=== PATIENT | female | born 1965 | race Caucasian/White ===

== ENCOUNTER 2021-06-29 13:49 | Outpatient (CLI) | payer BC, SELFPAY ==
--- NOTE | ~2021-06-29 | CT_ITS ---
EXAMINATION:CT lung screening DATE: 06/29/2021 14:21 INDICATION: Personal history of tobacco dependence. Current smoker with 40 pack year history. TECHNIQUE: Computed tomography (CT) of the chest was performed without intravenous contrast. Automate d exposure control and iterative reconstruction technique were employed. The dose-length product (DLP ) was 228.32 mGy-cm. COMPARISON: Chest CT 12/31/2018 FINDINGS: There is moderate emphysema. A calcified left lung nodule is consistent with old granulomat ous disease. No pleural effusion. The heart size is normal. There are coronary artery calcifications. There is a moderate-sized sliding hiatal hernia. There are changes of cholecystectomy. There is a li azalea in left chest wall. There is moderate thoracic spondylosis. There is mild chronic anterior wedgi ng of multiple vertebral bodies. IMPRESSION: 1. Lung-RADS category 1: Negative. Continue annual screening with noncontrast low-dose chest CT in 12 months. Reviewed, dictated and finalized at location A. IMPRESSION: 1. Lung-RADS category 1: Negative. Continue annual screening with noncontrast l ow-dose chest CT in 12 months.
--- NOTE | ~2021-06-29 | MM_ITS ---
EXAMINATION: MM screening gab BI w humza HISTORY: Screening mammogram TECHNIQUE: Craniocaudal and mediolateral oblique 3-D tomosynthesis images were obtained and synthetic 2-D images were generated. CAD analysis was submitted and interpreted. COMPARISON: No prior mammogram is available for comparison at this institution. BREAST PARENCHYMAL COMPOSITION: The breasts are almost entirely fatty. FINDINGS: RIGHT BREAST: A mass is present in the middle third of inner breast 8 cm from the nipple. LEFT BREAST: There is no evidence of suspicious mass, calcification, or architectural distortion to s uggest malignancy. IMPRESSION: 1. Right breast mass. 2. Additional mammographic views and possible breast ultrasound are recommended. BI-RADS Category 0: Incomplete: Needs additional imaging evaluation. Reviewed, dictated and finalized at location A. IMPRESSION: 1. Right breast mass. 2. Additional mammographic views and possible breast ultrasound are recommended . BI-RADS Category 0: Incomplete: Needs additional imaging evaluation.
--- NOTE | ~2021-06-29 | XR_ITS ---
XR lumbar spine 2-3V DATE: 06/29/2021 14:38 INDICATION: Low back pain TECHNIQUE: AP, lateral, coned lateral lumbosacral views COMPARISON: None FINDINGS: Diffuse osteopenia. The included lower thoracic and lumbar pedicles are intact. No fracture or bone destruction or spondy lolisthesis. Moderate degenerative disc disease throughout the lumbar and lumbosacral spine. The sacroiliac joints are unremarkable. Status post cholecystectomy. IMPRESSION: Multilevel moderate degenerative disc disease Reviewed, dictated and finalized at location A.
== END 2021-06-29 13:50 | disposition home or self-care (01) ==
PROVIDERS: PCP Family Medicine; Visit Provider Family Medicine
DX: Z12.2 Encounter for screening for malignant neoplasm of respiratory organs (principal); Z87.891 Personal history of nicotine dependence; Z12.31 Encounter for screening mammogram for malignant neoplasm of breast; M54.5 Low back pain
CPT/HCPCS: 71271; 72100; 77063; 77067

== ENCOUNTER 2021-07-16 09:16 | Outpatient (CLI) | payer BC, SELFPAY ==
--- NOTE | ~2021-07-16 | MMUS_ITS ---
EXAMINATION: MM diagnostic gab RT w humza, US breast RT limited HISTORY: Follow-up right breast asymmetry TECHNIQUE: Additional 3-D tomosynthesis images of the right breast were performed and synthetic 2-D i mages were generated. CAD analysis was submitted and interpreted. High resolution Limited right breas t ultrasound was performed. COMPARISON: 06/29/2021 BREAST PARENCHYMAL COMPOSITION: BREAST PARENCHYMAL COMPOSITION: There are scattered areas of fibroglandular density.. FINDINGS: MAMMOGRAPHIC FINDINGS: There is focal asymmetry with possible architectural distortion in the lower inner quadrant of the ri ght breast, middle third. There are no suspicious calcifications. ULTRASOUND: Limited right breast ultrasound: At 2:00, 6 cm from the nipple, there is an irregular hypoechoic stru cture measuring 7 mm with posterior attenuation. No internal vascularity. This likely corresponds to the mammographic abnormality. IMPRESSION: 1. Irregular shaped hypoechoic 7 mm right breast mass at 2:00, 6 cm from the nipple by ultrasound. 2. Ultrasound-guided right breast biopsy recommended. BI-RADS category 4, suspicious findings. Reviewed, dictated and finalized at location A. IMPRESSION: 1. Irregular shaped hypoechoic 7 mm right breast mass at 2:00, 6 cm from the ni pple by ultrasound. 2. Ultrasound-guided right breast biopsy recommended. BI-RADS category 4, suspicious findings.
== END 2021-07-16 09:17 | disposition home or self-care (01) ==
PROVIDERS: PCP Family Medicine; Visit Provider Family Medicine
DX: R92.8 Other abnormal and inconclusive findings on diagnostic imaging of breast (principal)
CPT/HCPCS: 76642; 77061; 77065; G0279

== ENCOUNTER 2021-08-03 10:27 | Outpatient (CLI) | payer BC, SELFPAY ==
--- NOTE | ~2021-08-03 | US_ITS ---
Consultation US 08/03/2021 11:09 Indication: Right breast abnormality seen on prior examination. Biopsy requested. Procedure: High-resolution ultrasound of the right breast at 2:00, 6 cm from the nipple in the area o f previously described abnormality. Comparison: Ultrasound dated 07/16/2021 Findings: There is normal heterogeneous echotexture without focal mass. The area of abnormality appea rs to represent normal fibroglandular tissue during real-time examination. I was present during the e xamination. Findings discussed with the patient. Biopsy canceled. Short-term follow-up diagnostic rig ht mammogram and ultrasound recommended. Impression: 1: Probable benign normal heterogeneous fibroglandular tissue in the area of previously described abn ormality. Short-term follow-up is recommended. BI-RADS CATEGORY 3-PROBABLY BENIGN FINDING RECOMMENDATION: Six-month follow-up diagnostic right mammogram and ultrasound recommended. Reviewed, dictated and finalized at location A. Impression: 1: Probable benign normal heterogeneous fibroglandular tissue in the area of pr eviously described abnormality. Short-term follow-up is recommended. BI-RADS CATEGORY 3-PROBABLY BENIGN FINDING RECOMMENDATION: Six-month follow-up diagnostic right mammogram and ultrasound r ecommended.
== END 2021-08-03 10:28 | disposition home or self-care (01) ==
LOC: ANHIMG 10:31
PROVIDERS: PCP Family Medicine; Visit Provider Family Medicine
DX: N63.10 Unspecified lump in the right breast, unspecified quadrant (principal); R92.8 Other abnormal and inconclusive findings on diagnostic imaging of breast
CPT/HCPCS: 99199

== ENCOUNTER 2022-07-04 12:37 | Outpatient (CLI) | payer BC, SELFPAY ==
--- NOTE | ~2022-07-04 | MMUS_ITS ---
EXAMINATION: MM diagnostic gab BI w humza, US breast RT limited HISTORY: Six-month follow-up for probably benign focal asymmetry of the right breast TECHNIQUE: Craniocaudal, mediolateral, and mediolateral oblique 3-D tomosynthesis images of the right breast were performed and synthetic 2-D images were generated. CAD analysis was submitted and interp reted. High resolution limited right breast ultrasound was performed. COMPARISON: 07/16/2021, 06/29/2021 BREAST PARENCHYMAL COMPOSITION: The breasts are almost entirely fatty. FINDINGS: MAMMOGRAPHIC FINDINGS: There is a developing asymmetry in the middle third of the inner breast at the 3:00 location 8 cm fro m the nipple with associated architectural distortion. ULTRASOUND: There is no evidence of focal abnormal solid or cystic mass in the vicinity of the mammographic findi ng in question. IMPRESSION: 1. Developing asymmetry of the right breast without ultrasound correlate identified. 2. Stereotactic right breast biopsy is recommended. BI-RADS category 4, suspicious findings. Reviewed, dictated and finalized at location A. IMPRESSION: 1. Developing asymmetry of the right breast without ultrasound correlate identi fied. 2. Stereotactic right breast biopsy is recommended. BI-RADS category 4, suspicious findings.
== END 2022-07-04 12:38 | disposition home or self-care (01) ==
PROVIDERS: PCP Family Medicine; Visit Provider Family Medicine
DX: R92.8 Other abnormal and inconclusive findings on diagnostic imaging of breast (principal)
CPT/HCPCS: 76642; 77061; 77062; 77065; 77066; G0279

== ENCOUNTER 2022-07-18 13:23 | Outpatient (CLI) | payer BC, SELFPAY ==
--- NOTE | ~2022-07-18 | MM_ITS ---
EXAMINATION: MM stereotactic bx RT, MM stereotactic specimen RT, MM post biopsy diagnostic RT, Specim en Radiograph, Tissue Marker Clip Placement, Unilateral Mammogram DATE: 07/18/2022 15:17 (accession [id number]), 07/18/2022 15:15 (accession [id number]), 07/18 15:13 (accession [id number]) INDICATION: Abnormal mammogram: 3:00 mammographic asymmetric density. TECHNIQUE AND FINDINGS: The risks and potential benefits of the procedure were discussed with the patient and written informe d consent was obtained. Timeout procedure was performed. The patient was placed in the prone position on the dedicated stereotactic table with the right breast in craniocaudal compression, and the area of interest was localized and targeted utilizing digital imaging with stereotaxis. After sterile preparation of the skin, 1% lidocaine was utilized for local anesthesia at the skin pun cture site and 1% lidocaine with epinephrine was utilized for deeper local anesthesia/is about the bi opsy site. A 9G [employer] vacuum assisted biopsy needle was advanced to the level of the calcification o f interest from a cephalad approach utilizing stereotactic guidance and a total of 16 tissue core bio psies were obtained. A specimen radiograph demonstrates that the calcifications of interest are included within the tissue cores. A tissue marker clip was then placed at the biopsy site. A digital mammographic exposure co nfirmed the successful deployment of the biopsy marker. The needle was removed and hemostasis was ac hieved. A sterile bandage was applied. The patient tolerated the procedure well and there is no bassam dence of significant immediate complication. The patient was given verbal as well as written postpro cedural instructions prior to discharge from the department. Tissue cores were submitted to surgical pathology for histologic analysis. A 2-view RIGHT unilateral digital mammogram was obtained post procedure, demonstrating the tissue mar ker clip in expected position. IMPRESSION: 1. Successful stereotactic biopsy of right 3:00 asymmetric mammographic density, followed by tissue marker clip placement. Please refer to pathology report for histologic analysis. Reviewed, dictated and finalized at Location A. Reviewed, dictated and finalized at location A. IMPRESSION: 1. Successful stereotactic biopsy of right 3:00 asymmetric mammographic densi ty, followed by tissue marker clip placement. Please refer to pathology report for histologic analysis. IMPRESSION: 1. Successful stereotactic biopsy of right 3:00 asymmetric mammographic densi ty, followed by tissue marker clip placement. Please refer to pathology report for histologic analysis.
== END 2022-07-18 13:24 | disposition home or self-care (01) ==
PROVIDERS: PCP Family Medicine; Visit Provider Family Medicine
DX: R92.8 Other abnormal and inconclusive findings on diagnostic imaging of breast (principal); N63.12 Unspecified lump in the right breast, upper inner quadrant
CPT/HCPCS: 19081; 77065; 88305; 88342; A4648

== ENCOUNTER 2022-12-12 10:23 | Outpatient (CLI) | payer BC, SELFPAY ==
[2022-12-12 10:35] LABS: Basophils Absolute Auto 0.1 K/mm3 (0.0-0.1); Eosinophils Absolute Auto 0.2 K/mm3 (0-0.3); Eosinophils Percent Auto 2.6 % (0-4.4); Hematocrit 44.6 % (37.0-47.0); Hemoglobin 15.2 g/dL (12.0-15.0); Immature Granulocyte Absolute 0.02 K/mm3 (0.00-0.031); Immature Granulocyte Percent A 0.3 % (0-0.5); Lymphocytes Absolute Auto 2.13 K/mm3 (0.9-3.2); Lymphocytes Percent Auto 27.3 % (18.3-44.2); Mean Corpuscular HGB Conc 34.1 g/dl (32-36); Mean Corpuscular Hemoglobin 31.5 pg (26-34); Mean Corpuscular Volume 92.3 fl (80-100); Mean Platelet Volume 9.5 fl (7.4-10.4); Monocytes Absolute Auto 0.5 K/mm3 (0.1-0.6); Monocytes Percent Auto 6.1 % (2.6-8.5); Neutrophils Absolute Auto 4.9 K/mm3 (1.3-6.7); Neutrophils Percent Auto 62.7 % (45.5-73.1); Platelet Count Result 319 k/mm3 (150-375); Red Blood Count 4.83 M/mm3 (4.2-5.4); Red Cell Distribution Width 14.1 % (11.5-14.5); White Blood Count 7.8 K/mm3 (4.5-10.0)
[2022-12-12 10:40] LABS: Blood Urea Nitrogen 9 mg/dL (8-26); Carbon Dioxide 28 mmol/L (22-30); Chloride 102 mmol/L (98-109); Estimated Glomerular Filt Rate > 60; Glucose 127 mg/dL (70-105); Ionized Calcium (POC) 1.18 mmol/L (1.11-1.31); Sodium 139 mmol/L (138-146)
[2022-12-12 11:41] LABS: Alanine Aminotransferase 22 U/L (6-35); Alkaline Phosphatase 102 U/L (38-126); Anion Gap 8 mmol/L (8-16); Aspartate Amino Transferase 22 U/L (14-36); Bilirubin,Total 0.4 mg/dL (0.2-1.3); Blood Urea Nitrogen 10 mg/dL (7-17); Calcium 8.7 mg/dL (8.4-10.2); Carbon Dioxide 25 mmol/L (22-30); Chloride 106 mmol/L (98-107); Estimated Glomerular Filt Rate > 60; Glucose 128 mg/dL (65-110); Sodium 139 mmol/L (137-145)
[2022-12-18 04:35] LABS: CA 15-3 20 U/mL (<32)
== END 2022-12-12 10:24 | disposition home or self-care (01) ==
LOC: ANHLAB 10:24
PROVIDERS: PCP Family Medicine; Visit Provider Internal Medicine Hematology & Oncology
DX: C50.211 Malignant neoplasm of upper-inner quadrant of right female breast (principal); Z17.0 Estrogen receptor positive status [ER+]
CPT/HCPCS: 36415; 80047; 80053; 85025; 86300

== ENCOUNTER 2023-01-30 11:04 | Outpatient (CLI) | payer BC, SELFPAY ==
[2023-01-30 11:16] LABS: Basophils Absolute Auto 0.1 K/mm3 (0.0-0.1); Basophils Percent Auto 0.7 % (0.2-1.2); Eosinophils Absolute Auto 0.3 K/mm3 (0-0.3); Eosinophils Percent Auto 3.1 % (0-4.4); Hematocrit 43.8 % (37.0-47.0); Immature Granulocyte Absolute 0.02 K/mm3 (0.00-0.031); Immature Granulocyte Percent A 0.2 % (0-0.5); Lymphocytes Absolute Auto 2.95 K/mm3 (0.9-3.2); Lymphocytes Percent Auto 32.4 % (18.3-44.2); Mean Corpuscular HGB Conc 34.2 g/dl (32-36); Mean Corpuscular Hemoglobin 31.4 pg (26-34); Mean Corpuscular Volume 91.6 fl (80-100); Mean Platelet Volume 9.9 fl (7.4-10.4); Monocytes Absolute Auto 0.5 K/mm3 (0.1-0.6); Monocytes Percent Auto 5.9 % (2.6-8.5); Neutrophils Absolute Auto 5.3 K/mm3 (1.3-6.7); Neutrophils Percent Auto 57.7 % (45.5-73.1); Platelet Count Result 330 k/mm3 (150-375); Red Blood Count 4.78 M/mm3 (4.2-5.4); Red Cell Distribution Width 13.7 % (11.5-14.5); White Blood Count 9.1 K/mm3 (4.5-10.0)
[2023-01-30 12:40] LABS: Alanine Aminotransferase 24 U/L (6-35); Albumin Level 4.1 g/dL (3.5-5.1); Alkaline Phosphatase 92 U/L (38-126); Anion Gap 6 mmol/L (8-16); Aspartate Amino Transferase 21 U/L (14-36); Bilirubin,Total 0.4 mg/dL (0.2-1.3); Blood Urea Nitrogen 7 mg/dL (7-17); Carbon Dioxide 26 mmol/L (22-30); Chloride 105 mmol/L (98-107); Estimated Glomerular Filt Rate > 60; Glucose 129 mg/dL (65-110); Potassium 3.9 mmol/L (3.4-5.0); Sodium 137 mmol/L (137-145)
[2023-02-03 18:18] LABS: CA 15-3 20 U/mL (<32)
== END 2023-01-30 11:05 | disposition home or self-care (01) ==
LOC: ANHLAB 11:06
PROVIDERS: PCP Family Medicine; Visit Provider Internal Medicine Hematology & Oncology
DX: C50.211 Malignant neoplasm of upper-inner quadrant of right female breast (principal); Z17.0 Estrogen receptor positive status [ER+]
CPT/HCPCS: 36415; 80053; 85025; 86300

== ENCOUNTER 2023-06-12 10:44 | Outpatient (CLI) | payer BC, SELFPAY ==
[2023-06-12 11:05] LABS: Basophils Absolute Auto 0.1 K/mm3 (0.0-0.1); Basophils Percent Auto 0.7 % (0.2-1.2); Eosinophils Absolute Auto 0.3 K/mm3 (0-0.3); Eosinophils Percent Auto 2.9 % (0-4.4); Hematocrit 44.1 % (37.0-47.0); Hemoglobin 15.5 g/dL (12.0-15.0); Immature Granulocyte Absolute 0.02 K/mm3 (0.00-0.031); Immature Granulocyte Percent A 0.2 % (0-0.5); Lymphocytes Absolute Auto 2.53 K/mm3 (0.9-3.2); Lymphocytes Percent Auto 24.3 % (18.3-44.2); Mean Corpuscular HGB Conc 35.1 g/dl (32-36); Mean Corpuscular Hemoglobin 32.8 pg (26-34); Mean Corpuscular Volume 93.2 fl (80-100); Mean Platelet Volume 9.9 fl (7.4-10.4); Monocytes Absolute Auto 0.8 K/mm3 (0.1-0.6); Monocytes Percent Auto 7.6 % (2.6-8.5); Neutrophils Absolute Auto 6.7 K/mm3 (1.3-6.7); Neutrophils Percent Auto 64.3 % (45.5-73.1); Platelet Count Result 333 k/mm3 (150-375); Red Blood Count 4.73 M/mm3 (4.2-5.4); White Blood Count 10.4 K/mm3 (4.5-10.0)
[2023-06-12 12:50] LABS: Alanine Aminotransferase 24 U/L (6-35); Albumin Level 4.2 g/dL (3.5-5.1); Alkaline Phosphatase 78 U/L (38-126); Anion Gap 8 mmol/L (8-16); Aspartate Amino Transferase 28 U/L (14-36); Bilirubin,Total 0.4 mg/dL (0.2-1.3); Blood Urea Nitrogen 7 mg/dL (7-17); Calcium 8.9 mg/dL (8.4-10.2); Carbon Dioxide 26 mmol/L (22-30); Chloride 105 mmol/L (98-107); Estimated Glomerular Filt Rate > 60; Glucose 115 mg/dL (65-110); Potassium 3.7 mmol/L (3.4-5.0); Sodium 139 mmol/L (137-145)
[2023-06-18 04:47] LABS: CA 15-3 28 U/mL (<32)
== END 2023-06-12 10:45 | disposition home or self-care (01) ==
LOC: ANHLAB 10:47
PROVIDERS: PCP Family Medicine; Visit Provider Internal Medicine Hematology & Oncology
DX: C50.211 Malignant neoplasm of upper-inner quadrant of right female breast (principal); Z17.0 Estrogen receptor positive status [ER+]
CPT/HCPCS: 36415; 80053; 85025; 86300

== ENCOUNTER 2023-06-16 16:20 | Outpatient (CLI) | payer BC, SELFPAY ==
--- NOTE | ~2023-06-16 | XR_ITS ---
EXAMINATION: XR chest 2V Exam Date/Time: 06/16/2023 16:30 CDT HISTORY: Acute Cough/sob Comparison: 04/29/2018. RESULT: Lines, tubes, and devices: Cholecystectomy clips. Right axillary clips. Right breast biopsy clips. Lungs and pleura: Clear. Cardiomediastinal silhouette: Stable. Other: No acute osseous or upper abdominal finding. IMPRESSION: No acute cardiopulmonary process. Reviewed, dictated and finalized at location K.
== END 2023-06-16 16:21 | disposition home or self-care (01) ==
LOC: CHSIMG 16:21
PROVIDERS: PCP Family Medicine; Visit Provider Family Medicine
DX: R05.1 Acute cough (principal)
CPT/HCPCS: 71046

== ENCOUNTER 2023-07-31 10:38 | Outpatient (CLI) | payer BC, SELFPAY ==
[2023-07-31 10:53] LABS: Basophils Absolute Auto 0.1 K/mm3 (0.0-0.1); Basophils Percent Auto 0.6 % (0.2-1.2); Eosinophils Absolute Auto 0.4 K/mm3 (0-0.3); Eosinophils Percent Auto 3.4 % (0-4.4); Hematocrit 41.9 % (37.0-47.0); Hemoglobin 14.1 g/dL (12.0-15.0); Immature Granulocyte Absolute 0.02 K/mm3 (0.00-0.031); Immature Granulocyte Percent A 0.2 % (0-0.5); Lymphocytes Absolute Auto 3.17 K/mm3 (0.9-3.2); Mean Corpuscular HGB Conc 33.7 g/dl (32-36); Mean Corpuscular Hemoglobin 31.8 pg (26-34); Mean Corpuscular Volume 94.6 fl (80-100); Mean Platelet Volume 9.8 fl (7.4-10.4); Monocytes Absolute Auto 0.6 K/mm3 (0.1-0.6); Monocytes Percent Auto 5.5 % (2.6-8.5); Neutrophils Absolute Auto 6.1 K/mm3 (1.3-6.7); Neutrophils Percent Auto 59.3 % (45.5-73.1); Platelet Count Result 323 k/mm3 (150-375); Red Blood Count 4.43 M/mm3 (4.2-5.4); Red Cell Distribution Width 12.8 % (11.5-14.5); White Blood Count 10.2 K/mm3 (4.5-10.0)
[2023-07-31 15:13] LABS: Alanine Aminotransferase 21 U/L (6-35); Albumin Level 3.9 g/dL (3.5-5.1); Alkaline Phosphatase 64 U/L (38-126); Anion Gap 2 mmol/L (8-16); Aspartate Amino Transferase 22 U/L (14-36); Bilirubin,Total 0.4 mg/dL (0.2-1.3); Blood Urea Nitrogen 10 mg/dL (7-17); Calcium 8.6 mg/dL (8.4-10.2); Carbon Dioxide 31 mmol/L (22-30); Chloride 105 mmol/L (98-107); Estimated Glomerular Filt Rate > 60; Glucose 85 mg/dL (65-110); Potassium 3.7 mmol/L (3.4-5.0); Sodium 138 mmol/L (137-145)
[2023-08-03 22:11] LABS: CA 15-3 29 U/mL (<32)
== END 2023-07-31 10:39 | disposition home or self-care (01) ==
PROVIDERS: PCP Family Medicine; Visit Provider Internal Medicine Hematology & Oncology
DX: C50.211 Malignant neoplasm of upper-inner quadrant of right female breast (principal); Z17.0 Estrogen receptor positive status [ER+]
CPT/HCPCS: 36415; 80053; 85025; 86300

== ENCOUNTER 2024-02-04 11:34 | Outpatient (CLI) | payer BC, SELFPAY ==
[2024-02-04 11:56] LABS: Basophils Percent Auto 0.5 % (0.2-1.2); Eosinophils Absolute Auto 0.1 K/mm3 (0-0.3); Eosinophils Percent Auto 1.3 % (0-4.4); Hematocrit 40.2 % (37.0-47.0); Hemoglobin 13.6 g/dL (12.0-15.0); Immature Granulocyte Absolute 0.03 K/mm3 (0.00-0.031); Immature Granulocyte Percent A 0.4 % (0-0.5); Lymphocytes Percent Auto 33.8 % (18.3-44.2); Mean Corpuscular HGB Conc 33.8 g/dl (32-36); Mean Corpuscular Hemoglobin 31.6 pg (26-34); Mean Corpuscular Volume 93.3 fl (80-100); Mean Platelet Volume 9.9 fl (7.4-10.4); Monocytes Absolute Auto 0.5 K/mm3 (0.1-0.6); Monocytes Percent Auto 6.9 % (2.6-8.5); Neutrophils Absolute Auto 4.4 K/mm3 (1.3-6.7); Neutrophils Percent Auto 57.1 % (45.5-73.1); Platelet Count Result 320 k/mm3 (150-375); Red Blood Count 4.31 M/mm3 (4.2-5.4); White Blood Count 7.7 K/mm3 (4.5-10.0)
[2024-02-04 12:52] LABS: Alanine Aminotransferase 18 U/L (6-35); Albumin Level 3.7 g/dL (3.5-5.1); Alkaline Phosphatase 88 U/L (38-126); Anion Gap 5 mmol/L (4-12); Aspartate Amino Transferase 18 U/L (14-36); Bilirubin,Total 0.3 mg/dL (0.2-1.3); Blood Urea Nitrogen 11 mg/dL (7-17); Calcium 9.1 mg/dL (8.4-10.2); Carbon Dioxide 32 mmol/L (22-30); Chloride 101 mmol/L (98-107); Estimated Glomerular Filt Rate > 60; Glucose 143 mg/dL (65-110); Potassium 3.6 mmol/L (3.4-5.0); Sodium 138 mmol/L (137-145)
[2024-02-07 09:16] LABS: CA 15-3 27 U/mL (<32)
== END 2024-02-04 11:35 | disposition home or self-care (01) ==
LOC: ANHLAB 11:37
PROVIDERS: PCP Family Medicine; Visit Provider Internal Medicine Hematology & Oncology
DX: C50.211 Malignant neoplasm of upper-inner quadrant of right female breast (principal); Z17.0 Estrogen receptor positive status [ER+]
CPT/HCPCS: 36415; 80053; 85025; 86300

== ENCOUNTER 2024-04-15 12:05 | Outpatient (CLI) | payer BC, SELFPAY ==
--- NOTE | ~2024-04-15 | US_ITS ---
US arterial ankle brachial ind INDICATION: TECHNIQUE: Segmental pressures and plethysmographic and Doppler waveforms of the brachial and lower e xtremity arteries were obtained. COMPARISON: None. FINDINGS: Left brachial artery pressures of 135 mm Hg. Right brachial pressure not performed due to history of breast cancer. The right ankle-brachial index (ANNE) is 0.94 (normal >= 0.9-1.0). The right great toe- brachial index (TBI) is 0.65 (normal >= 0.60). The left ANNE is 1.09. The left TBI is 0.68. IMPRESSION: 1. Normal bilateral ankle-brachial indices. Reviewed, dictated and finalized at location B.
== END 2024-04-15 12:06 | disposition home or self-care (01) ==
PROVIDERS: PCP Family Medicine; Visit Provider Family Medicine
DX: R09.89 Other specified symptoms and signs involving the circulatory and respiratory systems (principal)
CPT/HCPCS: 93922

== ENCOUNTER 2025-02-03 11:28 | Outpatient (CLI) | payer OTHER, SELFPAY ==
[2025-02-03 11:40] LABS: Basophils Absolute Auto 0.1 K/mm3 (0.0-0.1); Eosinophils Absolute Auto 0.2 K/mm3 (0-0.3); Eosinophils Percent Auto 2.4 % (0-4.4); Hematocrit 41.7 % (37.0-47.0); Hemoglobin 14.4 g/dL (12.0-15.0); Immature Granulocyte Absolute 0.02 K/mm3 (0.00-0.031); Immature Granulocyte Percent A 0.3 % (0-0.5); Lymphocytes Absolute Auto 3.35 K/mm3 (0.9-3.2); Lymphocytes Percent Auto 42.3 % (18.3-44.2); Mean Corpuscular HGB Conc 34.5 g/dl (32-36); Mean Corpuscular Hemoglobin 31.8 pg (26-34); Mean Corpuscular Volume 92.1 fl (80-100); Mean Platelet Volume 9.5 fl (7.4-10.4); Monocytes Absolute Auto 0.5 K/mm3 (0.1-0.6); Monocytes Percent Auto 6.2 % (2.6-8.5); Neutrophils Absolute Auto 3.8 K/mm3 (1.3-6.7); Neutrophils Percent Auto 47.8 % (45.5-73.1); Platelet Count Result 306 k/mm3 (150-375); Red Blood Count 4.53 M/mm3 (4.2-5.4); Red Cell Distribution Width 12.8 % (11.5-14.5); White Blood Count 7.9 K/mm3 (4.5-10.0)
--- OUTSIDE RECORDS SUMMARY | 2025-02-03 12:18 | XMS_ITS | Clinical Summary ---
Author Organization [facility] Address [address] [place] [address] Care Team Providers Care Celebrity Chef Entrepreneur Media Personality Name Role Phone Dyllan Naranjo MD Primary Care Provider [phone] Jas Hammonds MD Unavailable Allergies No known active allergies Medications omeprazole (PRILOSEC) 20 MG capsule Take 1 capsule (20 mg total) by mouth daily. Active tamoxifen (NOLVADEX) 20 MG tablet Take 1 tablet by mouth daily. Active traZODone (DESYREL) 50 MG tablet Take 1.5 tablets (75 mg total) by mouth nightly at bedtime. Active busPIRone (BUSPAR) 15 MG tablet Take 1 tablet (15 mg total) by mouth 2 (two) times daily. Active losartan (COZAAR) 50 MG tablet Take 1 tablet (50 mg total) by mouth daily. Active albuterol sulfate HFA 108 (90 Base) MCG/ACT inhaler Inhale 2 puffs into the lungs every 6 (six) hours as needed for Wheezing or Shortness of breath. Active hydroCHLOROthia zide (HYDRODIURIL) 25 MG tablet Take 1 tablet (25 mg total) by mouth every morning. Active venlafaxine XR (EFFEXOR-XR) 150 MG 24 hr capsule Take 1 capsule (150 mg total) by mouth daily. Active aspirin EC (ECOTRIN) 81 MG tablet Take 1 tablet (81 mg total) by mouth daily. 30 tablet 9 4 Active metoprolol tartrate (LOPRESSOR) 25 MG tablet Take 1 tablet (25 mg total) by mouth 2 (two) times daily. 60 tablet 8 4 Active Active Problems Problem Noted Date Diagnosed Date Pain of lower extremity, unspecified laterality 07/06/2024 Primary hypertension 07/06/2024 Smoker 07/06/2024 Encounters Date Type Department Care Team Description 12/20/2024 Telephone [facility] [address] [place] [address] Jas Hammonds MD Schedule Test from Last 3 Months Family History Medical History Relation Comments Hypertension Mother Relation Status Comments Mother Social History Tobacco Use Types Packs/Day Years Used Date Smoking Tobacco: Every Day Cigarettes Tobacco Cessation:Ready to Q uit: Not Asked; Counseling Given: Not Answered Comments Unknown Sex and Gender Information Value Date Recorded Sex Assigned at Choose not to disclose 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 Legal Sex Female 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 Gender Identity Not on file Sexual Orientation Not on file Last Filed Vital Signs Vital Sign Reading Time Taken Comments Blood Pressure 160/80 07/06/2024 10:45 AM CDT Pulse 81 07/06/2024 10:44 AM CDT Temperature - - Respiratory Rate 14 07/06/2024 10:44 AM CDT Oxygen Saturation 97% 07/06/2024 10:44 AM CDT Inhaled Oxygen Concentration - - Weight 90.7 kg (200 lb) 07/06/2024 10:44 AM CDT Height 157.5 cm (5' 2 ) 07/06/2024 10:44 AM CDT Body Mass Index 36.58 07/06/2024 10:44 AM CDT Plan of Treatment Health Maintenance Due Date Last Done Comments Colorectal Cancer Screening Colonoscopy (10 Years) 1963 Annual Physical 1966 Pneumococcal Vaccine: Pediat rics (0 to 5 Years) and At-Risk Patients (6 to 64 Years) (1 of 2 - PCV) 1969 Hepatitis C 1981 Zoster Vaccines (1 of 2) 2013 DTaP, Tdap and Td Vaccines ( 2 - Td or Tdap) 09/29/2022 09/29/2012 COVID-19 Vaccine (1 - 2023-2 5 season) 2024 RSV Immunization or 60+ Years (1 - 1-dose 75+ series) 2038 Meningococcal B Vaccine Aged Out No l onger eligible based on patient's age to complete this topic Meningococcal Vaccine Aged Out No seth mikey eligible based on patient's age to complete this topic RSV Immunizations Under 20 Months Aged Out No longer eligible based on patient's age to complete this topic Care Teams Celebrity Chef Entrepreneur Media Personality Relationship Specialty Start Date End Date Dyllan Naranjo MD [address] [place] [address] PCP - General FAMILY PRACTICE 06/17/24 Jas Hammonds MD [address] [place] [address] Consulting Physician INTERNAL MEDICINE 06/17/24
--- OUTSIDE RECORDS SUMMARY | 2025-02-03 12:18 | XMS_ITS | Clinical Summary ---
Author Organization [facility] Address [address] [place] [address] Care Team Providers Care Paper Ruler Name Role Phone Dyllan Naranjo MD Primary Care Provider [phone] Allergies No known active allergies Medications busPIRone (BUSPAR) 15 mg Tablet 2 Active traZODone (DESYREL) 50 mg tablet 2 Active ibuprofen (MOTRIN) 400 mg tablet Take 1 Tablet (400 mg) by mouth every 6 hours as needed for Pain, Mild or Pain, Moderate. 60 Tablet 09/13/2022 2:18 PM COMPUTER SUPPORT SPECIALIST 2 Active Calcium-Choleca lciferol, D3, (OSCAL) 250 mg-3.125 mcg (125 unit) per tablet Take by mouth daily. Active multivitamins-m inerals-lutein (CENTRUM SILVER) Tablet Take 1 Tablet by mouth daily. Active hydroCHLOROthia zide 25 mg tablet Take 1 Tablet by mouth daily. 4 Active losartan (COZAAR) 50 mg tablet Take 1 Tablet by mouth daily. 4 Active venlafaxine (EFFEXOR XR) 150 mg Extended Release 24 hour capsule take 1 capsule (150 mg) by oral route once daily, start after ocmpleting the 75 mg capsules 4 Active omeprazole (PriLOSEC) 20 mg Capsule, Delayed Release(E.C.) Take 20 mg by mouth daily. Active neomycin-polymy ignacio B-hydrocortison e (CORTISPORIN OTIC) 3.5-10,000-1 mg/mL-unit/mL-% otic suspension instill 4 drops into affected ear(s) by otic route 3 times per day x 7 days 4 Active tamoxifen (NOLVADEX) 20 mg tablet Take 1 Tablet (20 mg) by mouth daily. 90 Tablet 5 Active Active Problems Patient Care Coordination No te Formatting of this note migh t be different from the original. Primary Care: Dyllan Naranjo [place]: [place] [address] [facility] [address] [place] [address] Other: Dr. Sarah Alan MD Problem Noted Date Diagnosed Date S/P partial mastectomy, right 07/15/2024 Long-term current use of tamoxifen 07/15/2024 History of right breast cancer 07/08/2023 Status post partial mastectomy of right breast 0 07/08/2023 care home (current) use of aromatase inhibitors 01/02/2023 Tobacco abuse counseling 08/15/2022 Malignant neoplasm of lower- inner quadrant of right breast of female, estrogen receptor positive 08/01/2022 Encounters Date Type Department Care Team Description 01/10/2025 External Device Data [facility] ABSTRACTION Provider, Abstract 12/22/2024 External Device Data [facility] ABSTRACTION Provider, Abstract 12/21/2024 External Device Data [facility] ABSTRACTION Provider, Abstract 12/07/2024 External Device Data [facility] ABSTRACTION Provider, Abstract 11/25/2024 External Device Data [facility] ABSTRACTION Provider, Abstract 11/24/2024 External Device Data [facility] ABSTRACTION Provider, Abstract 11/23/2024 External Device Data [facility] ABSTRACTION Provider, Abstract 11/16/2024 External Device Data [facility] ABSTRACTION Provider, Abstract 11/15/2024 [facility] Oncology and Hematology - [address] [place] [address] Vasile Billings MD 11/13/2024 [facility] Oncology [facility] Hematology [address] [place] [address] Vasile Billings MD 11/09/2024 External Device Data [facility] ABSTRACTION Provider, Abstract from Last 3 Months Family History Medical History Relation Name Comments Cancer Maternal Grandmother kidney Breast Cancer Neg Hx Ovarian Cancer Neg Hx Relation Name Status Comments Maternal Grandmother Social History Tobacco Use Types Packs/Day Years Used Date Smoking Tobacco: Every Day Cigarettes 1 43 Tobacco Cessation:Ready to Q uit: Not Asked; Counseling Given: Not Answered Alcohol Use Standard Drinks/Week Comments Never 0 (1 standard drink = 0.6 oz pur e alcohol) Comments No Sex and Gender Information Value Date Recorded Sex Assigned at Not on file Legal Sex Female 4:23 PM CDT Gender Identity Not on file Sexual Orientation Not on file Last Filed Vital Signs Vital Sign Reading Time Taken Comments Blood Pressure 144/76 07/15/2024 10:37 AM CDT Pulse 65 02/10/2024 9:20 AM CDT Temperature 35.9 C (96.7 F) 02/10/2024 9:20 AM CDT Respiratory Rate 14 02/10/2024 9:20 AM CDT Oxygen Saturation 97% 02/10/2024 9:20 AM CDT Inhaled Oxygen Concentration - - Weight 88.5 kg (195 lb) 07/15/2024 10:37 AM CDT Height 160 cm (5' 3 ) 07/15/2024 10:37 AM CDT Body Mass Index 34.54 07/15/2024 10:37 AM CDT Plan of Treatment Upcoming Encounters Date Type Department Care Team (Late st Contact Info) Description 02/07/2025 3:30 PM CDT Office Visit [facility] Oncology and Hematology [facility] [address] [facility] [address] [place] [address] Vasile Billings MD [address] [facility] [address] [place] [address] 08/02/2025 10:00 AM CDT Appointment [facility] Rachel Gallegos [address] [place] [address] [place] [address] [address] [address] 08/02/2025 11:00 AM CDT Office Visit [facility] Breast Surgery Rachel Gallegos [address] [place] [address] [place] [address] [address] [facility] [address] [address] Health Maintenance Due Date Last Done Comments Pre-Diabetes and Diabetes Screening 1965 DTAP/TDAP/TD VACCINES (1 - Tdap) 1982 COLORECTAL SCREENING 2008 Colorectal Cancer Screening 2008 FIT-DNA Q 3 years 2008 FIT/FOBT Q 1 year 2008 Flex Sig/CT Colonography Q 5 years 2008 Lung Cancer Screening 2013 ZOSTER VACCINE (1 of 2) 2013 INFLUENZA VACCINE (#1) 2024 Preventative Visit- Commercial 11/03/2024 BREAST CANCER SCREENING 07/15/2025 07/15/2024, 07/08 RSV VACCINE (60+ or ) (1 - 1-dose 75+ series) 2038 Medical Devices Implanted Type Area Tower Control Operator Device Identifier Shelf Expiration Date Model / Serial / Lot Swabber Clip Surgiclip Ii Chandra 9.75in [id number] - [id number] Implanted:Qty : 1 on 09/13/2022 by Sarah Alan MD at [facility] Clip Right: Breast [employer] - [employer] [id number] 07/03/2027 [id number] / / [id number] Hemostatic Surgicel 2x14in 1950 [id number] Implanted:Qty : 1 on 09/13/2022 by Sarah Alan MD at [facility] Hemostatic Right: Breast [employer] [id number] 04/02/20261950 / / [id number] Procedures Procedure Name Priority Date/Time Associated Diagnosis Comments MAMMO 3D KELL DIAGNOSTIC BILAT W OR WO CAD Routine 07/15/2024 10:24 AM CDT History of right breast cancer Status post partial mastectomy of right breast from Last 3 Months or Most Recently Relevant to Health Maintenance Results * MAMMO DIAG BILAT 3D KELL W OR WO CAD (07/15/2024 10:24 AM CDT) Anatomical Region Laterality Modality Breast Bilateral Mammography 07/15/2024 10:2 4 AM CDT Impressions 07/15/2024 11:12 AM CDT IMPRESSION: No mammographic evidence of malignancy. RECOMMENDATIONS: Bilateral diagnostic mammogram in one year. DICTATION LOCATION: [facility] 07/15/2024 11:12 AM CDT EXAM: BILATERAL DIAGNOSTIC FULL-FIELD DIGITAL MAMMOGRAM WITH CAD WITH 3D TOMOSYNTHESIS DATE: 07/15/2024 10:24 AM HISTORY: Personal history of breast cancer with prior right conservation therapy. TECHNIQUE: Mediolateral oblique, mediolateral, and craniocaudal views of both breasts were performed using full-field digital mammography. Low dose full field digital breast tomosynthesis examination was performed with 2D and 3D acquisitions. Examination is read in conjunction with computer aided detection. COMPARISON: July 2022 and July 2023 BREAST COMPOSITION: Scattered fibroglandular densities FINDINGS: Mammographic changes consistent with breast conservation therapy on the right are noted. No suspicious findings are seen on the mammogram. Since the prior study, there has been no significant change. Computer aided detection detected no significant abnormality. OVERALL FINAL ASSESSMENT: BI-RADS CATEGORY 2 - Benign findings Procedure Note Lukasz Luu MD - 07/15/2024 EXAM: BILATERAL DIAGNOSTIC FULL-FIELD DIGITAL MAMMOGRAM WITH CAD WITH 3D TOMOSYNTHESIS DATE: 07/15/2024 10:24 AM HISTORY: Personal history of breast cancer with prior right conservation therapy. TECHNIQUE: Mediolateral oblique, mediolateral, and craniocaudal views of both breasts were performed using full-field digital mammography. Low dose full field digital breast tomosynthesis examination was performed with 2D and 3D acquisitions. Examination is read in conjunction with computer aided detection. COMPARISON: July 2022 and July 2023 BREAST COMPOSITION: Scattered fibroglandular densities FINDINGS: Mammographic changes consistent with breast conservation therapy on the right are noted. No suspicious findings are seen on the mammogram. Since the prior study, there has been no significant change. Computer aided detection detected no significant abnormality. OVERALL FINAL ASSESSMENT: BI-RADS CATEGORY 2 - Benign findings IMPRESSION: No mammographic evidence of malignancy. RECOMMENDATIONS: Bilateral diagnostic mammogram in one year. DICTATION LOCATION: [facility] Sarah Alan MD MAMMO ORDERABLES Final R esult from Last 3 Months or Most Recently Relevant to Health Maintenance Insurance RX [employer] Commercial BCBS BLUE PREFERRED BCBS BLUE PREFERRED Advance Directives For more information, please contact: [phone] * Full Code (Latest Code Status on File) Date Activated Date Inactivated Comments 09/13/2022 11:08 AM 09/13/2022 6:26 PM Care Teams Paper Ruler Relationship Specialty Start Date End Date Dyllan Naranjo MD [address] [place] [address] PCP - General Family Practice 08/01/22
[2025-02-03 13:46] LABS: Alanine Aminotransferase 18 U/L (6-35); Albumin Level 3.9 g/dL (3.5-5.1); Alkaline Phosphatase 76 U/L (38-126); Anion Gap 6 mmol/L (4-12); Aspartate Amino Transferase 23 U/L (14-36); Bilirubin,Total 0.4 mg/dL (0.2-1.3); Blood Urea Nitrogen 15 mg/dL (7-17); Calcium 8.9 mg/dL (8.4-10.2); Carbon Dioxide 30 mmol/L (22-30); Chloride 102 mmol/L (98-107); Estimated Glomerular Filt Rate > 60; Glucose 141 mg/dL (65-110); Potassium 3.7 mmol/L (3.4-5.0); Sodium 138 mmol/L (137-145)
[2025-02-05 02:23] LABS: CA 15-3 20 U/mL (<32)
== END 2025-02-03 11:29 | disposition home or self-care (01) ==
PROVIDERS: PCP Family Medicine; Visit Provider Internal Medicine Hematology & Oncology
DX: C50.211 Malignant neoplasm of upper-inner quadrant of right female breast (principal); Z17.0 Estrogen receptor positive status [ER+]
CPT/HCPCS: 36415; 80053; 85025; 86300

== ENCOUNTER 2025-03-30 10:16 | Outpatient (CLI) | payer OTHER, SELFPAY ==
--- NOTE | ~2025-03-30 | DEXA_ITS ---
Bone Density Report Name: JIM ROBBINS Age: 59 Sex: Female Ethnicity: White Date of : 1965 Indication: postmenopausal; screening for osteoporosis; cancer; hysterectomy; Referring Provider: KACIE THOMAS Study: Bone densitometry was performed. Exam Date: March 30, 2025 Accession number: [id number] Bone Density: Region BMD T-score Z-score Classification AP Spine(L1-L4) 1.057 0.1 1.6 Normal Femoral Neck (Left) 0.738 -1.0 0.4 Normal Total Hip (Left) 1.028 0.7 1.7 Normal Femoral Neck (Right) 0.740 -1.0 0.4 Normal Total Hip (Right) 0.939 0.0 1.0 Normal Total Hip Mean 0.983 0.4 1.4 Normal World Health Organization criteria for BMD impression classify patients as: Normal (T-score at or above -1.0), Osteopenia (T-score between -1.0 and -2.5), or Osteoporosis (T-score at or below -2.5). 10-year Fracture Risk: FRAX not reported because: All T-scores for Spine Total, Hip Total, Femoral Neck at or above -1.0 Clinical Information Provided by Patient: Smokes Has used the following medications: Vitamin D, Calcium Has the following medical conditions: Cancer, Hysterectomy Patient maximum height was 63 Menopause Age: 30 No regular weight bearing exercise Drinks caffeinated beverages Onset of menses at age 12 Number of children 1 Impression: The patient has normal bone mass. The patient has risk factors, including: smoking. Discussion: BONE DENSITY IS ABOVE THE MINIMUM DESIRABLE LEVEL AT ALL SKELETAL SITES TESTED. This patient?s bone mineral density is above the minimum desirable level (T-score -1.0 or better) at all sites measured. The patient should follow a healthful lifestyle (good nutrition with adequate calcium and vitamin D, and appropriate weight-bearing exercise). Follow-Up: Consider repeating this study in 5 years or sooner if there is some new clinical indication. Reported by: SOILA on 03/30/2025 10:48:00 AM. Reviewed, dictated and finalized at location A.
--- OUTSIDE RECORDS SUMMARY | 2025-03-30 10:21 | XMS_ITS | Clinical Summary ---
[facility] Address [address] [place] [address] Care Team Providers Care Economic Specialist Name Role Phone Dyllan Naranjo MD Primary Care Provider [phone] Allergies No known active allergies Medications busPIRone (BUSPAR) 15 mg Tablet 2 Active traZODone (DESYREL) 50 mg tablet 2 Active ibuprofen (MOTRIN) 400 mg tablet Take 1 Tablet (400 mg) by mouth every 6 hours as needed for Pain, Mild or Pain, Moderate. 60 Tablet 09/13/2022 2:18 PM DATA CAPTURE SPECIALIST 2 Active Calcium-Choleca lciferol, D3, (OSCAL) [...] per day x 7 days 4 Active aspirin (ECOTRIN EC) 81 mg Tablet, Delayed Release (E.C.) Take 81 mg by mouth daily. 4 Active metoprolol tartrate (LOPRESSOR) 25 mg tablet Take 25 mg by mouth 2 times daily. Active tamoxifen (NOLVADEX) 20 mg tablet TAKE 1 TABLET BY MOUTH DAILY 90 Tablet 3 5 Active Active Problems Patient Care Coordination No te Formatting of this note migh t be different from the original. Primary Care: Dyllan Naranjo [place]: [place] [address] [facility] [address] [place] [address] Other: Dr. Sarah Alan MD Problem Noted Date Diagnosed Date S/P partial mastectomy, right 07/15/2024 Long-term current use of tamoxifen 07/15/2024 History of right breast cancer 07/08/2023 Status post partial mastectomy of right breast 0 07/08/2023 nursing home (current) use of aromatase inhibitors 01/02/2023 Tobacco abuse counseling 08/15/2022 Malignant neoplasm of lower- inner quadrant of right breast of female, estrogen receptor positive 08/01/2022 Encounters Date Type Department Care Team Description 03/22/2025 External Device Data STL ABSTRACTION Provider, Abstract 02/25/2025 Orders Only [facility] Oncology and Hematology [facility] [address] [place] [address] Vasile Billings MD Osteopenia of multiple sites (Primary Dx) 02/11/2025 Refill [facility] Oncology and Hematology [facility] [address] [place] [address] Vasile Billings MD 02/08/2025 Orders Only [facility] Oncology and Hematology [facility] [address] [place] [address] Vasile Billings MD 02/07/2025 3:30 PM CDT Office Visit [facility] Oncology and Hematology [facility] [address] [place] [address] Vasile Billings MD Malignant neoplasm of upper-inner quadrant of right breast in female, estrogen receptor positive (CMS/HCC) (Primary Dx) 02/03/2025 Orders Only [facility] Oncology and Hematology [facility] [address] [place] [address] Vasile Billings MD 01/10/2025 External Device Data STL ABSTRACTION Provider, [...] Sign Reading Time Taken Comments Blood Pressure 148/73 02/07/2025 3:24 PM CDT Pulse 70 02/07/2025 3:22 PM CDT Temperature 36.1 C (97 F) 02/07/2025 3:22 PM CDT Respiratory Rate 16 02/07/2025 3:22 PM CDT Oxygen Saturation 94% 02/07/2025 3:22 PM CDT Inhaled Oxygen Concentration - - Weight 91.9 kg (202 lb 9.6 oz) 02/07/2025 3:22 P M CDT Height 160 cm (5' 3) 07/15/2024 10:37 AM CDT Body Mass Index 35.89 07/15/2024 10:37 AM CDT Plan of Treatment Upcoming Encounters Date Type Department Care Team (Late st Contact Info) Description 08/02/2025 10:00 AM CDT Appointment [facility] [address] [place] [address] [place] [address] [address] [address] 08/02/2025 11:00 AM CDT Office Visit [facility] Breast Surgery Preston [address] [address] [facility] [address] [place] [address] [place] [address] [facility] [address] [address] 08/15/2025 2:30 PM CDT Office Visit [facility] Oncology and Hematology - [place] [address] [facility] [address] [place] [address] Vasile Billings MD [address] [facility] [address] [place] [address] Health Maintenance Due Date Last Done Comments Pre-Diabetes and Diabetes Screening 1965 DTAP/TDAP/TD VACCINES (1 - Tdap) 1982 COLORECTAL SCREENING 2008 Colorectal Cancer Screening 2008 FIT-DNA Q 3 years 2008 FIT/FOBT Q 1 year 2008 Flex Sig/CT Colonography Q 5 years 2008 Lung Cancer Screening 2013 ZOSTER VACCINE (1 of 2) 2013 INFLUENZA VACCINE (#1) 2024 BREAST CANCER SCREENING 07/15/2025 07/15/2024, 07/08 RSV VACCINE (60+ or ) (1 - 1-dose 75+ series) 2038 Medical Devices Implanted Type Area Photo Finish Photographer Device Identifier Shelf Expiration Date Model / Serial / Lot Project Engineer Clip Surgiclip Ii Chandra 9.75in [id number] - [id number] Implanted:Qty : 1 on 09/13/2022 by Sarah Alan MD at [facility] Clip Right: Breast [employer] - COVIDIEN [id number] 07/03/2027 [id number] / / [id number] Hemostatic Surgicel 2x14in 1950 - [id number] Implanted:Qty : 1 on 09/13/2022 by Sarah Alan MD at [facility] Hemostatic Right: Breast [employer]- [employer] [id number] 04/02/20261950 / / [id number] Procedures Procedure Name Priority Date/Time Associated Diagnosis Comments COMPREHENSIVE METABOLIC PANEL Routine 02/03/2025 4:09 PM CDT CANCER ANTIGEN 15-3 Routine 02/03/2025 1 0:34 AM CDT MAMMO 3D KELL DIAGNOSTIC BILAT W OR WO CAD Routine 07/15/2024 10:24 AM CDT History of right breast cancer Status post partial mastectomy of right breast from Last 3 Months or Most Recently Relevant to Health Maintenance Results * COMPREHENSIVE METABOLIC PANEL (02/03/2025 4:09 PM CDT) Blood us Vasile Billings MD CHEMISTRY ORDERABLES Final Resu lt * CANCER ANTIGEN 15-3 (02/03/2025 10:34 AM CDT) Blood us Vasile Billings MD CHEMISTRY ORDERABLES Final Resu lt * MAMMO DIAG BILAT 3D KELL W OR WO CAD (07/15/2024 10:24 AM CDT) Anatomical Region Laterality Modality Breast Bilateral Mammography 07/15/2024 10:2 4 AM CDT Impressions 07/15/2024 11:12 AM CDT IMPRESSION: No mammographic evidence of malignancy. RECOMMENDATIONS: Bilateral diagnostic mammogram in one year. DICTATION LOCATION: Lillie Gallegos Narrative 07/15/2024 11:12 AM CDT EXAM: BILATERAL DIAGNOSTIC [...] diagnostic mammogram in one year. DICTATION LOCATION: [facility] Sarah Alan MD MAMMO ORDERABLES Final R esult from Last 3 Months or Most Recently Relevant to Health Maintenance Insurance RX [employer] Commercial [address] [place] [address] [id number] [address] [place] [id number] Advance Directives For more information, please contact: [phone] * Full Code (Latest Code Status on File) Date Activated Date Inactivated Comments 09/13/2022 11:08 AM 09/13/2022 6:26 PM Care Teams Economic Specialist Relationship Specialty Start Date End Date Dyllan Naranjo MD [address] [place] [address] PCP - General Family Practice 08/01/22
== END 2025-03-30 10:17 | disposition home or self-care (01) ==
LOC: ANHIMG 10:18
PROVIDERS: PCP Family Medicine; Visit Provider Internal Medicine Hematology & Oncology
DX: M85.89 Other specified disorders of bone density and structure, multiple sites (principal)
CPT/HCPCS: 77080

== ENCOUNTER 2025-08-09 08:20 | Outpatient (CLI) | payer OTHER, SELFPAY ==
--- OUTSIDE RECORDS SUMMARY | 2025-08-09 08:35 | XMS_ITS | Clinical Summary ---
Author Organization [facility] Address [address] [place] [address] Care Team Providers Care Leather Cartridge Belt Maker Name Role Phone Dyllan Naranjo MD Primary Care Provider Allergies No known active allergies Medications busPIRone (BUSPAR) 15 mg Tablet 2 Active traZODone (DESYREL) 50 mg tablet 2 Active ibuprofen (MOTRIN) 400 mg tablet Take 1 Tablet (400 mg) by mouth every 6 hours as needed for Pain, Mild or Pain, Moderate. 60 Tablet 09/13/2022 2:18 PM FITNESS INSTRUCTOR 2 Active Calcium-Choleca lciferol, D3, (OSCAL) 250 [...] Naranjo [place]: [place] [address] [facility] [address] [place] [address] Other: Dr. Sarah Alan MD Problem Noted Date Diagnosed Date S/P partial mastectomy, right 07/15/2024 Long-term current use of tamoxifen 07/15/2024 History of right breast cancer 07/08/2023 Status post partial mastectomy of right breast 0 07/08/2023 long term care administrator (current) use of aromatase inhibitors 01/02/2023 Tobacco abuse counseling 08/15/2022 Malignant neoplasm of lower- inner quadrant of right breast of female, estrogen receptor positive 08/01/2022 Encounters Date Type Department Care Team Description 08/02/2025 Telephone [facility] Breast Surgery Preston [address]legos [address] [facility] [address] [place] [address] Fernanda Manuel RN Needs Orders Written 08/02/2025 Orders Only [facility] Breast Surgery [place] [address] [address] [facility] [address] [place] [address] Sarah Alan MD History of right breast cancer (Primary Dx) 07/12/2025 External Device Data STL ABSTRACTION Provider, Abstract 07/05/2025 External Device Data STL ABSTRACTION Provider, Abstract 06/21/2025 External Device Data STL ABSTRACTION Provider, Abstract 06/21/2025 External Device Data STL ABSTRACTION Provider, Abstract 06/14/2025 External Device Data STL ABSTRACTION Provider, Abstract 06/08/2025 External Device Data STL ABSTRACTION Provider, Abstract 05/18/2025 External Device Data STL ABSTRACTION Provider, Abstract 05/17/2025 External Device Data STL ABSTRACTION Provider, Abstract [...] Care Team (Late st Contact Info) Description 08/15/2025 2:30 PM CDT Office Visit [facility] Oncology and Hematology - [place] [address] [facility] [address] [place] [address] Vasile Billings MD [address] [facility] [address] [place] [address] Health Maintenance Due Date Last Done Comments Pre-Diabetes and Diabetes Screening 1965 DTAP/TDAP/TD VACCINES (1 - Tdap) 1982 COLORECTAL SCREENING 2008 Colorectal Cancer Screening 2008 FIT-DNA Q 3 years 2008 FIT/FOBT Q 1 year 2008 Flex Sig/CT Colonography Q 5 years 2008 Lung Cancer Screening 2013 ZOSTER VACCINE (1 of 2) 2013 Preventative Visit- Commercial 11/03/2024 INFLUENZA VACCINE (#1) 2025 BREAST CANCER SCREENING 07/15/2025 07/15/2024, 07/08 RSV VACCINE (60+ or ) (1 - 1-dose 75+ series) 2038 Medical Devices Implanted Type Area Counter Caser Device Identifier Shelf Expiration Date Model / Serial / Lot Artifacts Conservator Clip Surgiclip Ii Chandra 9.75in [id number] - [id number] Implanted:Qty : 1 on 09/13/2022 by Sarah Alan MD at [facility] Clip Right: Breast [employer] - COVID[employer]EN [id number] 07/03/2027 [id number] / / [id number] Hemostatic Surgicel 2x14in 1950 [id number] Implanted:Qty : 1 on 09/13/2022 by Sarah Alan MD at [facility] Hemostatic Right: Breast [employer] [id number] 04/02/2026 195 / / [id number] Procedures Procedure Name Priority Date/Time Associated Diagnosis [...] diagnostic mammogram in one year. DICTATION LOCATION: [facility] 07/15/2024 11:12 AM CDT EXAM: BILATERAL DIAGNOSTIC [...] in one year. DICTATION LOCATION: Lillie Gallegos Sarah Alan MD MAMMO ORDERABLES Final R esult from Last 3 Months or Most Recently Relevant to Health Maintenance Insurance RX [employer] Commercial [address] [id number] [address] [id number] Advance Directives For more information, please contact: [phone] * Full Code (Latest Code Status on File) Date Activated Date Inactivated Comments 09/13/2022 11:08 AM 09/13/2022 6:26 PM Care Teams Leather Cartridge Belt Maker Relationship Specialty Start Date End Date Dyllan Naranjo MD [address] [place] [address] PCP - General Family Practice 08/01/22
[2025-08-09 08:44] LABS: Hematocrit 40.8 % (37.0-47.0); Hemoglobin 13.9 g/dL (12.0-15.0); Immature Granulocyte Percent A 0.2 % (0-0.5); Lymphocytes Absolute Auto 3.03 K/mm3 (0.9-3.2); Mean Corpuscular HGB Conc 34.1 g/dl (32-36); Mean Corpuscular Hemoglobin 31.6 pg (26-34); Mean Corpuscular Volume 92.7 fl (80-100); Nucleated Red Blood Cells Absolute Auto 0.000 K/mm3 (0.0-0.012); Nucleated Red Blood Cells Perc 0.0 % (0.0-0.2); Platelet Count Result 331 k/mm3 (150-375); Red Blood Count 4.40 M/mm3 (4.2-5.4); White Blood Count 9.4 K/mm3 (4.5-10.0)
[2025-08-09 09:57] LABS: Alanine Aminotransferase 25 U/L (6-35); Albumin Level 3.7 g/dL (3.5-5.1); Alkaline Phosphatase 82 U/L (38-126); Anion Gap 6 mmol/L (4-12); Aspartate Amino Transferase 28 U/L (14-36); Bilirubin,Total 0.2 mg/dL (0.2-1.3); Blood Urea Nitrogen 10 mg/dL (7-17); Calcium 9.0 mg/dL (8.4-10.2); Carbon Dioxide 29 mmol/L (22-30); Chloride 101 mmol/L (98-107); Estimated Glomerular Filt Rate > 60; Glucose 122 mg/dL (65-110); Potassium 4.0 mmol/L (3.4-5.0); Sodium 136 mmol/L (137-145); Total Protein 7.1 g/dL (6.3-8.2)
== END 2025-08-09 08:21 | disposition home or self-care (01) ==
LOC: ANHLAB 08:26
PROVIDERS: PCP Family Medicine; Visit Provider Internal Medicine Hematology & Oncology
DX: C50.211 Malignant neoplasm of upper-inner quadrant of right female breast (principal); Z17.0 Estrogen receptor positive status [ER+]
CPT/HCPCS: 36415; 80053; 85025; 86300

== ENCOUNTER 2025-08-22 09:37 | Outpatient (CLI) | payer OTHER, SELFPAY ==
--- NOTE | ~2025-08-22 | MM_ITS ---
EXAMINATION: MM diagnostic gab BI w humza INDICATION: Asymptomatic, referred for diagnostic mammogram follow-up post right partial mastectomy for breast cancer. History of Right partial mastectomy 09/13/2022. COMPARISON: 09/13/2022 through 06/29/2021 TECHNIQUE: Digital Breast Tomosynthesis CC, MLO views were obtained of Both breasts with computer-aided detection to assist in interpretation of the study. FINDINGS: The breasts are almost entirely fatty. Expected Posttreatment changes in Right breast with no evidence of tumor recurrence within the surgical bed. No new focal dominant mass, architectural distortion, or suspicious microcalcifications are identified. There are no features to suggest malignancy. IMPRESSION: Benign mammogram. No evidence of malignancy in the breast. Recommend annual screening mammography in 12 months. BI-RADS 2, BENIGN Reviewed, dictated and finalized at location B.
== END 2025-08-22 09:38 | disposition home or self-care (01) ==
LOC: CHSIMG 09:38
PROVIDERS: PCP Family Medicine
DX: Z85.3 Personal history of malignant neoplasm of breast (principal)
CPT/HCPCS: 77062; 77066; G0279